=== PATIENT | male | born 1990 | race Caucasian/White ===

== ENCOUNTER 2018-11-07 18:37 | Emergency (ER) | payer SELFPAY ==
[~2018-11-07] VITALS: Wt 59.6 kg
[2018-11-07] MEDS ORDERED: SOD CHLORIDE 0.9% 1,000 ML IV STA (18:45)
[2018-11-07] MEDS ORDERED: LIDOCAINE 1% (MDV) 20 ML INJ SC ONE (19:00)
[2018-11-07] MEDS ORDERED: DIPHTH/TET/ACEL PERTUSS (ADULT) 0.5 ML VIAL IM* ONE (19:00)
[2018-11-07] MEDS ORDERED: LORAZEPAM 2 MG INJ IV ONE ×2 (19:00→19:30)
[2018-11-07] MEDS ORDERED: NEOMYC/POLYMYX/BACIT 30 GM OINT TOP ONE (19:00)
[2018-11-07] MEDS ORDERED: HALOPERIDOL 5 MG INJ IM ONE (19:30)
--- NOTE | 2018-11-07 20:14 | ERD ---
ER Documentation Chief Complaint Chief Complaint bib ra from street for overdose with pd in custody HPI 39-year-old man brought in by EMS for agitation and possible intoxication, 911 was called because patient was agitated and had scissors is in his hand while at a convenience store. [employer] officers had to shoot multiple beanbags at him and also tased him. There was no loss of consciousness, patient had no loss of bowel or bladder control. He was transported here agitated and combative ROS All systems reviewed and are negative except as per history of present illness. Allergies Allergies: Coded Allergies: No Known Allergy (Unverified , 11/07/18) PMhx/Soc Psychiatric illness, drug abuse FmHx Family History: No diabetes Physical Exam Vitals Vital Signs Date Temp Pulse Resp B/P (MAP) Pulse Ox O2 O2 Flow FiO2 Time Delivery Rate 11/07/18 98.3 106 19 110/70 100 Room Air 22:10 (83) 11/07/18 97.8 108 15 114/70 98 21:03 (85) 11/07/18 98.3 115 20 112/59 100 Room Air 20:58 (76) 11/07/18 98.5 114 12 112/59 97 20:48 (76) 11/07/18 98.5 113 18 121/65 98 20:36 (83) 11/07/18 98.5 110 15 124/78 98 20:25 (93) 11/07/18 98.3 145 20 126/72 100 Room Air 20:08 (90) 11/07/18 98.5 92 17 126/74 100 20:08 (91) 11/07/18 98.5 92 17 126/74 100 20:05 (91) 11/07/18 98.5 95 20 122/70 100 19:48 (87) 11/07/18 98.5 102 20 136/78 100 19:33 (97) 11/07/18 98.5 100 20 140/70 100 19:18 (93) 11/07/18 98.3 145 30 113/86 100 Room Air 19:03 (95) 11/07/18 98.3 145 19 113/86 100 18:49 (95) Physical Exam GENERAL: Well-developed, well-nourished, appears intoxicated, agitated, afebrile HEENT: Moist mucous membranes, pink conjunctiva, no cervical spine tenderness or step-off deformities, no goiter, no jaundice or icterus, extraocular movements intact without pain. No submandibular induration, and no pharyngeal erythema NEURO: Alert and oriented 3, answers questions, follows commands, moving all extremities CARDIAC: Tachycardic and regular, no murmurs rubs or gallops LUNGS: Clear bilaterally no wheezing crackles or stridor ABDOMEN: Soft nontender, no guarding, no rigidity, no rebound, no psoas sign no obturator sign. SKIN: Warm and dry to touch, superficial laceration to the plantar aspect of the right foot without active bleeding, multiple circular soft tissue contusions over the lower extremities and torso including the right thigh and right lower abdomen where the beanbags struck him EXTREMITIES: No clubbing cyanosis or edema, calves are bilaterally symmetrical, no Homans sign, no popliteal cord sign. Distal pulses equal and bilateral PSYCH: Agitated and combative Result Diagram: 11/07/18185411/07/181854 Results 24 hrs Laboratory Tests Test 11/07/18 18:55 11/07/18 19:25 White Blood Count 12.5 10^3/ul Red Blood Count 4.31 10^6/ul Hemoglobin 13.0 g/dl Hematocrit 37.7 % Mean Corpuscular Volume 87.5 fl Mean Corpuscular Hemoglobin 30.2 pg Mean Corpuscular Hemoglobin Concent 34.5 g/dl Red Cell Distribution Width 12.0 % Platelet Count 222 10^3/UL Mean Platelet Volume 10.4 fl Immature Granulocytes % 0.300 % Neutrophils % % Segmented Neutrophils % (Manual) 95 % Band Neutrophils % (Manual) 1 % Lymphocytes % % Lymphocytes % (Manual) 3 % Monocytes % % Monocytes % (Manual) 1 % Eosinophils % % Basophils % % Nucleated Red Blood Cells % 0.0 /100WBC Immature Granulocytes # 0.040 10^3/ul Neutrophils # 10^3/ul Neutrophils # (Manual) 11.9 10^3/ul Band Neutrophils # 0.1 10^3/ul Lymphocytes (Manual) 0.3 10^3/ul Lymphocytes # 10^3/ul Monocytes # 10^3/ul Monocytes # (Manual) 0.1 10^3/ul Eosinophils # 10^3/ul Basophils # 10^3/ul Nucleated Red Blood Cells # 10^3/ul Platelet Estimate NORMAL Anisocytosis 2+ Macrocytosis 2+ Sodium Level 141 mmol/L Potassium Level 3.8 mmol/L Chloride Level 101 mmol/L Carbon Dioxide Level 22 mmol/L Anion Gap 18 Blood Urea Nitrogen 18 mg/dl Creatinine 1.01 mg/dl Est Glomerular Filtrat Rate mL/min > 60 mL/min Glucose Level 162 mg/dl Calcium Level 9.3 mg/dl Total Bilirubin 1.0 mg/dl Direct Bilirubin 0.00 mg/dl Indirect Bilirubin 1.0 mg/dl Aspartate Amino Transf (AST/SGOT) 200 IU/L Alanine Aminotransferase (ALT/SGPT) 106 IU/L Alkaline Phosphatase 71 IU/L Troponin I < 0.012 ng/ml Total Protein 7.7 g/dl Albumin 4.7 g/dl Globulin 3.00 g/dl Albumin/Globulin Ratio 1.56 Lipase 89 U/L Ethyl Alcohol Level < 10.0 mg/dl Urine Color YELLOW Urine Clarity SLIGHTLY CLOUDY Urine pH 6.0 Urine Specific Renick 1.020 Urine Ketones TRACE mg/dL Urine Nitrite NEGATIVE mg/dL Urine Bilirubin NEGATIVE mg/dL Urine Urobilinogen 1+ mg/dL Urine Leukocyte Esterase NEGATIVE Myra/ul Urine Microscopic RBC 2 /HPF Urine Microscopic WBC 3 /HPF Urine Mucus MODERATE /HPF Urine Hemoglobin 2+ mg/dL Urine Glucose NEGATIVE mg/dL Urine Total Protein 2+ mg/dl Urine Opiates Screen Negative Urine Barbiturates Negative Urine Amphetamines Screen Negative Urine Benzodiazepines Screen Negative Urine Cocaine Screen Negative Urine Cannabinoids Negative Current Medications Medications Dose Sig/Cori Start Time Status Last (Trade) Ordered Route PRN Stop Time Admin Dose Reason Admin Lidocaine 20 ml ONCE ONCE 11/07/18 DC 11/07/18 (Xylocaine SC 19:00 18:56 1% (Mdv) 20 11/07/18 19:01 ml) Diphtheria/ 0.5 ml ONCE ONCE 11/07/18 DC 11/07/18 Tetanus/Acell IM* 19:00 19:54 Pertussis 11/07/18 19:01 (Adacel) Neomycin/ 1 applic ONCE ONCE 11/07/18 DC 11/07/18 Polymyxin/ TOP 19:00 19:53 Bacitracin 11/07/18 19:01 (Neosporin Topical Oint) Lorazepam 2 mg ONCE ONCE 11/07/18 DC 11/07/18 (Ativan) IV 19:00 18:56 11/07/18 19:01 Sodium 1,000 ml @ Q1H STAT 11/07/18 DC 11/07/18 Chloride 1,000 mls/hr IV 18:45 18:56 11/07/18 19:44 Lorazepam 2 mg ONCE ONCE 11/07/18 DC 11/07/18 (Ativan) IV 19:30 19:53 11/07/18 19:31 Haloperidol 5 mg ONCE ONCE 11/07/18 DC 11/07/18 (Haldol) IM 19:30 19:53 11/07/18 19:31 Ceftriaxone 50 ml @ ONCE ONCE 11/07/18 DC 11/07/18 Sodium 100 mls/hr IVPB 21:00 21:15 11/07/18 21:29 Sodium 1,000 ml @ Q1H ONCE 11/07/18 DC 11/07/18 Chloride 1,000 mls/hr IV 21:00 21:15 11/07/18 21:59 Procedures/MDM IV line was established 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 Patient was afebrile Patient had to be placed in four-point restraints due to increased agitation and combative behavior. I administered Ativan 2 mg IV x 2 and haloperidol 5 mg IV x1. Patient also received 2 L normal saline IV. EKG performed, read by me revealed a sinus tachycardia at 136 bpm, right axis deviation all right, narrow QRS complex, no concerning ST elevations or depressions noted I also ordered tetanus toxoid 0.5 mL IM and antibiotic ointment over soft tissue contusions and foot abrasion/laceration. I also administered ceftriaxone 1 g IV Chest X-ray 1V Interpreted by me: Soft Tissue: No acute abnormalities Bones: No acute abnormalities Mediastinum/Cardiac Silhouette/Lungs: No acute abnormalities CT scan of the abdomen pelvis was performed, no acute inflammatory pathology or organ injury noted. Please refer to radiologist dictation for full report. CBC and electrolytes were normal, liver function tests were normal, troponin was negative, urinalysis was negative for infection, ethanol level was negative, drug screen was also negative. Patient's initial tachycardia resolved completely and is resting comfortably at this time. Patient's behavioral symptoms have stabilized while in the department. Patient is medically cleared and appropriate for psychiatric evaluation and work up. No e/o neurologic, toxic, infectious, or metabolic cause. Departure Diagnosis: Primary Impression: Psychiatric illness Additional Impressions: Acute psychosis Foot laceration Encounter type: initial encounter Laterality: right Qualified Codes: S91.311A - Laceration without foreign body, right foot, initial encounter Contusion of soft tissue Condition: JUDY Sadler MD Nov 07, 2018 20:14
[2018-11-07] MEDS ORDERED: CEFTRIAXONE 1 GM/50 ML (PMX) 50 ML IVPB ONE (21:00)
[2018-11-07] MEDS ORDERED: SOD CHLORIDE 0.9% 1,000 ML IV ONE (21:00)
[2018-11-08 09:46] VITALS: BP 117/71; PULSE 88; RESP 16
== END 2018-11-08 10:28 ==
LOC: E/R 18:37 → EDBD 18:37 → E/R 11-08 10:28
DX: F99 Mental disorder, not otherwise specified (principal); R40.2132 Coma scale, eyes open, to sound, at arrival to emergency department; R40.2242 Coma scale, best verbal response, confused conversation, at arrival to emergency department; R40.2342 Coma scale, best motor response, flexion withdrawal, at arrival to emergency department; F23 Brief psychotic disorder; S91.311A Laceration without foreign body, right foot, initial encounter; S70.11XA Contusion of right thigh, initial encounter; S30.1XXA Contusion of abdominal wall, initial encounter; X58.XXXA Exposure to other specified factors, initial encounter; Y92.9 Unspecified place or not applicable; Z23 Encounter for immunization
CPT/HCPCS: 36415; 71045; 74176; 80053; 80307; 81001; 83690; 84484; 85025; 90471; 90715; 93005; 96361; 96365; 96372; 96375; 96376; 99285; J0696; J1630; J2060; J7030; P9612